=== PATIENT | female | born 1970 | race Two or more races ===

== ENCOUNTER 2019-01-16 09:49 | Day surgery (SDC) | payer BC ==
[~2019-01-16] VITALS: Ht 167.6 cm; Wt 79.5 kg
[2019-01-16] VITALS (12 sets, daily range): BP systolic 109–148; BP diastolic 58–72; PULSE 77–106; RESP 13–19; Ht 167.6 cm; Wt 79.5 kg
[~2019-01-16 09:49] MED LIST: CEFAZOLIN 2 GM/50 ML (PMX) 50 ML IVPB SCH; SEVOFLURANE 15 MIN ONE; SOD CHLORIDE 0.9% 1,000 ML IV SCH
[2019-01-16] MEDS ORDERED: FENTAnyl 50 MCG/ML VIAL ONE (10:18)
[2019-01-16] MEDS ORDERED: ONDANSETRON 4 MG INJ ONE (10:19)
[2019-01-16] MEDS ORDERED: PROPOFOL 20 ML ONE (10:21)
[2019-01-16] MEDS ORDERED: CEFAZOLIN 1 GM INJ ONE (10:21)
[2019-01-16] MEDS ORDERED: LIDOCAINE 2% (SDV) 5 ML INJ ONE (10:21)
[2019-01-16] MEDS ORDERED: MIDAZOLAM 1 MG/ML 2 ML INJ ONE (10:21)
--- NOTE | 2019-01-16 13:00 | PREAC ---
Date/Time of Note Date/Time of Note DATE: 01/16/19 TIME: 12:59 Anesthesia Eval and Record Evaluation Time Pre-Procedure Interview DATE: 01/16/19 TIME: 12:59 Age 48 Sex female NPO: 8 hrs Preoperative diagnosis L breast mass Planned procedure L breast mass excision Past Medical History Past Medical History: None Surgery & Anesthesia Issues No known issue Meds Anticoagulation: No Beta Eleanor within 24 hr: No Reason Beta Eleanor not given: Pt. not on B-Eleanor No Active Prescriptions or Reported Meds Current Medications Sodium Chloride 1,000 ml @ 75 mls/hr [id number] IV ; Start 01/16/19 at 06:00; Stop 01/16/19 at 19:19 Cefazolin Sodium/ Dextrose 50 ml @ 100 mls/hr PREOP IVPB ; Start 01/16/19 at 06:00; Stop 01/16/19 at 16:00 Meds reviewed: Yes Allergies Coded Allergies: No Known Drug Allergies (Verified Allergy, Unknown, 01/16/19) Allergies Reviewed: Yes Labs/Studies Labs Reviewed: Reviewed by anesthesiologist test: Negative Studies: ECG, CXR Pre-procedure Exam Last vitals Vital Signs Date Temp Pulse Resp B/P (MAP) Pulse Ox O2 O2 Flow FiO2 Time Delivery Rate 01/16/19 97.9 77 16 109/62 99 Room Air 10:19 (78) Airway: Adequate mouth opening, Adequate thyromental dist Mallampati: Mallampati III Teeth: Normal Lung: Normal Heart: Normal ASA Physical Status ASA physical status: 2 Emergency: None Planned Anesthetic General/MAC: LMA Planned Pain Management Parenteral pain med, Local by surgeon Pre-operative Attestations Prior to commencing anesthesia and surgery, the patient was re-evaluated, there was verification of: *The patient's identity *The results of appropriate recent lab work and preoperative vital signs *The above evaluation not changing prior to induction *Anesthetic plan, risk benefits, alternative and complications discussed with patient/family; questions answered; patient/family understands, accepts and wishes to proceed. INDU ESTRADA MD Jan 16, 2019 13:00
[2019-01-16] MEDS ORDERED: BUPIVACAINE 0.25%/EPI (SDV) 30 ML INJ ONE (13:03)
[2019-01-16] MEDS ORDERED: ONDANSETRON 4 MG INJ IV PRN (14:00)
[2019-01-16] MEDS ORDERED: KETOROLAC 30 MG INJ IV PRN (14:00)
[2019-01-16] MEDS ORDERED: IBUPROFEN 600 MG TAB PO PRN (14:00)
[2019-01-16] MEDS ORDERED: HYDROCODONE/APAP (5/325) TAB PO PRN (14:00)
--- NOTE | 2019-01-16 14:06 | OPR ---
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 Postoperative Diagnosis Ductal carcinoma in situ left breast Operation/Procedure Performed Reexcision partial mastectomy of ductal carcinoma in situ of left breast Surgeon see signature line Prototype Carpenter Ata Barry MD Anesthesia Type: general Anesthesiologist: INDU ESTRADA MD Estimated Blood Loss: minimal Transfusion none Specimen Reexcision partial mastectomy left breast Grafts/Implants none Complications none Pt Condition Post Procedure: stable Disposition: PACU Indications Patient is a 48-year-old female who initially presented to the office with 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 The patient underwent surgical excisional biopsy. 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 Given the above findings the patient was scheduled for elective reexcision partial mastectomy of the left breast. All risks and benefits of the procedure including, but not limited to: Wound infection, excessive bleeding, postoperative seroma/hematoma formation, possible need for subsequent surgeries, loss of nipple areolar sensation, etc. were explained to the patient in full detail. She fully understood and wished to proceed with the procedure. Informed consent was obtained. Procedure Description The patient was brought to the operating room and placed supine on the operating table. Bilateral sequential compression devices were placed on both lower extremities. A dose of broad-spectrum perioperative intravenous antibiotics was given. After the induction of smooth general anesthesia the patient's left breast and chest wall were prepped and draped in standard surgical fashion. After performance of the surgical timeout the patient's prior incision which was located from approximately the 1:00 location to the 2:00 location of the left breast, 2cm from the areolar border was incised using a 15 blade scalpel. Incision was carried down through the skin and subcutaneous tissues to the level of breast tissue using sharp dissection and Bovie electrocautery. Flaps were then raised circumferentially. Post excisional changes from the patient's prior surgery were identified. Circumferential core of tissue was then dissected around the prior excision site to include both the anterior and inferior margins. Dissection was taken to the level of the chest wall. The specimen was then transected at its base. Marking sutures were used to jayden the anterosupe rior and medial aspects. Specimen was then passed off the field. At this point hemostasis was inspected for and noted to be total. The wound cavity was irrigated and the irrigant returned clear. 0.25% Marcaine local anesthesia was applied around the skin and the incision site. The skin was then reapproximated using interrupted 3-0 Vicryl sutures for the dermal layer and a running 4-0 Monocryl suture in subcuticular fashion for the skin. Incision was cleaned and Dermabond was applied as well as sports bra. The patient was then awoken from anesthesia and transferred to the recovery room in stable condition. All counts were correct at the end of the case 2. KAI AHN MD Jan 16, 2019 14:06
--- NOTE | 2019-01-16 17:35 | PAC ---
Date/Time of Note Date/Time of Note DATE: 01/16/19 TIME: 17:35 Post-Anesthesia Notes Post-Anesthesia Note Last documented vital signs Vital Signs Date Temp Pulse Resp B/P (MAP) Pulse Ox O2 O2 Flow FiO2 Time Delivery Rate 01/16/19 97.2 83 18 125/66 98 Room Air 15:06 (85) 01/16/19 8.0 14:09 Activity: WNL Respiratory function: WNL Cardiovascular function: WNL Mental status: Baseline Pain reasonably controlled: Yes Hydration appropriate: Yes Nausea/Vomiting absent: Yes INDU ESTRADA MD Jan 16, 2019 17:35
== END 2019-01-16 15:47 | disposition home or self-care (01) ==
LOC: SDS 09:49
PROVIDERS: ATTEND Surgery
DX: D24.2 Benign neoplasm of left breast (principal); Z85.3 Personal history of malignant neoplasm of breast
CPT/HCPCS: 19301; 84703; 88307; J0690; J1885; J2250; J2405; J3010; Z7512; Z7610